=== PATIENT | female | born 1985 | race Two or more races ===

== ENCOUNTER 2017-01-19 04:56 | Emergency (ER) | payer SELFPAY ==
[~2017-01-19] VITALS: Ht 160 cm; Wt 59.0 kg
[2017-01-19] MEDS ORDERED: HYDROMORPHONE 2 MG/ML VIAL. IV PRN (05:45)
--- NOTE | 2017-01-19 05:59 | PHYS DOC ---
Past Medical History Past Medical History: Kidney Stone Past Surgical History: No Surgical History Alcohol Use: None Drug Use: None Adult General Chief Complaint Chief Complaint: ABDOMINAL PAIN HPI HPI 31-year-old female with a history of kidney stones presents emergency department with right flank pain. Her pain is sharp radiating to the groin intermittent and not associated with hematuria. She has nausea with one episode of nonbilious vomiting. She describes the pain is severe. Review of systems is negative for fevers chills. She denies chest pain or shortness of breath. All other review of systems is negative unless otherwise noted in history of present illness. Review of Systems Review of Systems SEE ABOVE. Current Medications Current Medications Current Medications Medications (Trade) Dose Ordered Sig/Camryn Start Time Stop Time Status Last Admin Dose Admin Hydromorphone HCl (Dilaudid) 0.5 mg PRN Q1HR PRN 01/19/17 05:45 Ondansetron HCl 4 mg 4 mg 1X ONCE 01/19/17 06:00 01/19/17 06:01 Sodium Chloride (Iv Sodium Chloride 0.9% 1000ml Bag) 1,000 ml @ 1,000 mls/hr 1X ONCE 01/19/17 06:00 01/19/17 06:59 Allergies Allergies Allergies Coded Allergies Type Severity Reaction Last Updated Verified No Known Drug Allergies 08/27/14 No Physical Exam Physical Exam Constitutional: Well developed, well nourished, no acute distress, non-toxic appearance. [] HENT: Normocephalic, atraumatic, bilateral external ears normal, oropharynx moist, no oral exudates, nose normal. Eyes: PERRLA, EOMI, conjunctiva normal, no discharge. [] Neck: Normal range of motion, no tenderness, supple, no stridor. Cardiovascular:Heart rate regular rhythm, no murmur [] Lungs & Thorax: Bilateral breath sounds clear to auscultation Abdomen: Bowel sounds normal, soft, no tenderness, no masses, no pulsatile masses. [] Skin: Warm, dry, no erythema, no rash. [] Back: No tenderness, mild right CVA tenderness. Extremities: No tenderness, no cyanosis, no clubbing, ROM intact, no edema. Neurologic: Alert and oriented X 3, normal motor function, normal sensory function, no focal deficits noted. [] Psychologic: Affect normal, judgement normal, mood normal. [] Current Patient Data Vital Signs Vital Signs Date Time Temp Pulse Resp B/P Pulse Ox O2 Delivery O2 Flow Rate FiO2 01/19/17 05:08 98.2 112 22 128/80 100 Room Air 98.2 EKG EKG [] Radiology/Procedures Radiology/Procedures [] Course & Med Decision Making Course & Med Decision Making Pertinent Labs and Imaging studies reviewed. (See chart for details) [] 31-year-old female presenting the emergency department with right flank pain. On examination the patient was mildly tachycardic. Afebrile. Exam shows right CVA tenderness. Urinalysis and test ordered. Patient was then signed out to Dr. Chapa at 6 AM with plans to follow up on urinalysis test and the patient's clinical condition. Dragon Disclaimer Dragon Disclaimer This electronic medical record was generated, in whole or in part, using a voice recognition dictation system. NICOLE CARTER MD Jan 19, 2017 05:58
[2017-01-19] MEDS ORDERED: IV NORMAL SALINE 1000ML BAG 1,000 ML IV ONE (06:00)
[2017-01-19] MEDS ORDERED: ONDANSETRON PF 4 MG/2 ML VIAL. IV ONE (06:00)
[2017-01-19 06:04] LABS: BILIRUBIN,URINE NEGATIVE (NEG); GLUCOSE,URINE NEGATIVE (NEG); NITRITE,URINE POSITIVE (NEG); PH,URINE 6.5; PROTEIN,URINE NEGATIVE (NEG-TRACE)
--- NOTE | 2017-01-19 06:48 | RAD ---
INDICATION: Abdomen pain. COMPARISON: August 27, 2014 TECHNIQUE: Ultrasound images obtained of the right kidney and bladder. FINDINGS: No gross hydronephrosis of the right kidney. Bladder largely decompressed IMPRESSION: No right-sided hydronephrosis Electronically signed by: Ortiz Field (Jan 19, 2017 06:46:18)
[2017-01-19 06:50] LABS: BACTERIA,URINE MANY /HPF (0-FEW); RBC,URINE >40 /HPF (0-2); SQUAMOUS EPITHELIAL CELL,UR MANY /LPF
--- NOTE | 2017-01-19 06:53 | ACF ---
Admit Criteria Forms Admit Criteria Forms Admit Criteria Forms ABDOMINAL PAIN Clinical Indications for Admission to Inpatient Care (Place 'X' for any and all applicable criteria): Admission is indicated for ANY ONE of the following(1)(2)(3)(4)(5): [X]I. Inpatient admission required rather than observation care (Also use Abdominal Pain: Observation Care, as appropriate) because of ANY ONE of the following: [X]a) Severe pain requiring acute inpatient management [ ]b) Identification of etiology/finding that requires inpatient care (eg, aortic dissection, free air) [ ]c) Absent bowel sounds with complete ileus(6) [ ]d) Suspected toxic megacolon [ ]e) Severe electrolyte abnormalities requiring inpatient care [ ]f) High fever or infection requiring inpatient admission as indicated by ANY ONE of following(7)(8): [ ] i) Appropriate outpatient or observational care antimicrobial treatment unavailable, not effective, or not feasible [ ] ii) Documented bacteremia [ ] iii) Temperature > 104.9 degrees F (oral) [ ] iv) T >103.1 F (oral) or < 96.8 F(rectal) that does not respond to all emergency treatment measures [ ]g) Signs of intestinal obstruction [B] [ ]h) Hemodynamic instability [ ]i) IV fluid to replace significant ongoing losses (greater than 3 L/m2 per day) (12)(13) [ ]j) Percutaneous or open drainage (eg, abscess, biliary tract ) procedures [ ]k) Parenteral nutrition regimen that must be implemented on inpatient basis [ ]l) Other condition,treatment or monitoring requiring inpatient admission. [ ]II. Peritoneal signs present [ ]III. Surgery needed that cannot be performed on an ambulatory basis. [ ]IV. Evaluation requires patient to not eat or drink for extended period ( eg, more than 24 hours). [ ]V. Contraindications and/or Inappropriate clinical situations for Observational Care in patients with abdominal pain, when ANY ONE of the following is required: [ ]a) Thorough evaluation is required to prevent catastrophic events due to delays in diagnosing (e.g.Mesenteric ischemia) 1,3 [ ]b) Patient with severe pathology or with chronic symptoms unlikely to improve in the ED stay (3) [ ]. General contraindications and/or Inappropriate clinical situations for Observational Care in patients with abdominal pain, when ANY ONE of the following is required: [ ]a) Prediction of prolongation of LOS based on ANY ONE of the following may be considered as a contraindication for observational care 2, 3, 4, 5, 6, 7, 8, 9, 10, 11 [ ]i) Age > 65 yrs. [ ]ii) Patient arriving by ambulance [ ]iii) Patient with high acuity [ ]iv) Patient requiring vital sign monitoring [ ]v) Patient on IV medication [ ]b) Systolic blood pressures 180mmHg 3,12 [ ]c) Patient with altered mental status including delirium and other alteration of consciousness, (3) [ ]d) Patient whose discharge disposition will be to a penitentiary home or rehabilitation home should not be managed in Emergency Department Observation Unit. CMS rule requires 3 days hospital stay before such placement.3,13 [ ]e) Patient with failure to thrive due to broad array of etiologies 3,16,17 [ ]f) Inability to ambulate 3,14 Extended stay beyond goal length of stay may be needed for(2)(3): [ ]a) Persistent abdominal pain with suspected intra-abdominal process [ ]b) Diagnosed condition requiring continued stay (e.g., pancreatitis, complicated diverticulitis) [ ]c) Surgery (e.g., colectomy) The original [employer] content created by [employer] has been revised. The portions of the content which have been revised are identified through the use of italic text or in bold, and [facility] has neither reviewed nor approved the modified material.All other unmodified content is copyright [employer]. Please see references footnoted in the original [facility] edition 2016 CARMEL BHATT Jan 19, 2017 06:53
[2017-01-19] MEDS ORDERED: CIPR250T PO (07:05)
[2017-01-19 07:10] VITALS: BP 110/57
== END 2017-01-19 07:19 | disposition home or self-care (01) ==
LOC: ER 04:56
DX: N30.01 Acute cystitis with hematuria (principal)
CPT/HCPCS: 76775; 81001; 81025; 87086; 96361; 96374; 96375; 99285; J1170; J2405; J7030

== ENCOUNTER 2018-07-12 05:51 | Inpatient (IN) | payer SELFPAY ==
[~2018-07-12] VITALS: Ht 152.4 cm; Wt 60.3 kg
[~2018-07-12 05:51] MED LIST: CIPR250T PO
[2018-07-12] MEDS ORDERED: IV NORMAL SALINE 1000ML BAG 1,000 ML IV SCH (06:15)
[2018-07-12] MEDS ORDERED: MORPHINE SULFATE 4 MG/ML DISP.SYRIN. IV ONE ×2 (06:15→07:00)
[2018-07-12] MEDS ORDERED: ONDANSETRON PF 4 MG/2 ML VIAL. IV ONE ×2 (06:15→07:45)
--- NOTE | 2018-07-12 06:16 | PHYS DOC ---
Past Medical History Past Medical History: Kidney Stone, UTI Past Surgical History: Cholecystectomy Alcohol Use: None Drug Use: None Adult General Chief Complaint Chief Complaint: ABDOMINAL PAIN HPI HPI Patient is a 32-year-old female, 4, para 3, approximately 20 weeks gestation, who presents to the emergency department for evaluation. She had a relatively sudden onset of right flank pain, with radiation down towards the right groin. The patient does have a history of renal stones and states that the pain feels similar. The pain began this morning, at about 2 AM, rather suddenly. The patient has had a few episodes of vomiting. She has not had any dysuria or gross hematuria. She has not had any vaginal bleeding or discharge and reports positive movement. She has not had any dizziness or lightheadedness, fevers, or chills. There are no alleviating or exacerbating factors to her symptoms. Review of Systems Review of Systems Constitutional: Denies fever or chills [] Eyes: Denies change in visual acuity, redness, or eye pain [] HENT: Denies nasal congestion or sore throat [] Respiratory: Denies cough or shortness of breath [] Cardiovascular: The patient denies any shortness of breath, chest pain, palpitations, or orthopnea [] GI: Denies bloody stools or diarrhea [] : Denies dysuria or hematuria [] Musculoskeletal: Denies back pain or joint pain, other than right flank pain [] Integument: Denies rash or skin lesions [] Neurologic: Denies headache, focal weakness or sensory changes [] Endocrine: Denies polyuria or polydipsia [] All other systems were reviewed and found to be within normal limits, except as documented in this note. Current Medications Current Medications Current Medications Medications (Trade) Dose Ordered Sig/[facility] Start Time Stop Time Status Last Admin Dose Admin Fentanyl Citrate (Fentanyl 2ml Vial) 50 mcg 1X ONCE 07/12/18 07:30 07/12/18 07:36 DC 07/12/18 07:47 50 MCG Ketorolac Tromethamine (Toradol) 30 mg 1X ONCE 07/12/18 08:15 07/12/18 08:16 DC 07/12/18 08:26 30 MG Morphine Sulfate (Morphine Sulfate) 4 mg 1X ONCE 07/12/18 07:00 07/12/18 07:01 DC 07/12/18 07:03 4 MG Ondansetron HCl (Zofran) 4 mg 1X ONCE 07/12/18 07:45 07/12/18 07:47 DC Sodium Chloride 1,000 ml @ 1,000 mls/hr Q1H 07/12/18 06:15 07/12/18 07:14 DC 07/12/18 06:20 1,000 MLS/HR Allergies Allergies Allergies Coded Allergies Type Severity Reaction Last Updated Verified No Known Drug Allergies 08/27/14 No Physical Exam Physical Exam PHYSICAL EXAM: CONSTITUTIONAL: Well developed, well nourished HEAD: normocephalic, atraumatic EENT: PERRL, EOMI. Conjunctivae normal color, sclerae non-icteric; moist mucous membranes. NECK: Supple, non-tender; no meningismus. LUNGS: Lungs CTA, breathing even and unlabored. Normal air movement. HEART: Regular rate and rhythm, no murmur CHEST: No deformity; non-tender ABDOMEN: The abdomen is soft, and relatively nontender. The gravid uterus is palpable and nontender. There is mild tenderness to palpation in the right lower abdomen. no masses or bruits. EXTREM: Normal ROM; no deformity, no calf tenderness. Normal pulses palpable in all extremities. There is no pedal edema. SKIN: No rash; no diaphoresis NEURO: Alert; normal speech and cognition; CN's grossly intact; strength grossly intact without focal deficit. BACK: There is significant right sided CVA TTP. There is no left-sided CVA tenderness to palpation of midline vertebral tenderness to palpation to the thoracic or lumbar spine. Current Patient Data Vital Signs Vital Signs Date Time Temp Pulse Resp B/P (MAP) Pulse Ox O2 Delivery O2 Flow Rate FiO2 07/12/18 07:03 Room Air 07/12/18 06:22 99 07/12/18 05:54 98.2 112 22 125/88 (100) 98.2 Lab Values Laboratory Tests Test 07/12/18 06:02 07/12/18 07:50 White Blood Count 6.8 x10^3/uL (4.0-11.0) Red Blood Count 3.61 x10^6/uL (3.50-5.40) Hemoglobin 11.2 g/dL (12.0-15.5) L Hematocrit 31.3 % (36.0-47.0) L Mean Corpuscular Volume 87 fL (79-100) Mean Corpuscular Hemoglobin 31 pg (25-35) Mean Corpuscular Hemoglobin Concent 36 g/dL (31-37) Red Cell Distribution Width 15.8 % (11.5-14.5) H Platelet Count 172 x10^3/uL (140-400) Neutrophils (%) (Auto) 70 % (31-73) Lymphocytes (%) (Auto) 19 % (24-48) L Monocytes (%) (Auto) 7 % (0-9) Eosinophils (%) (Auto) 3 % (0-3) Basophils (%) (Auto) 1 % (0-3) Neutrophils # (Auto) 4.8 x10^3uL (1.8-7.7) Lymphocytes # (Auto) 1.3 x10^3/uL (1.0-4.8) Monocytes # (Auto) 0.5 x10^3/uL (0.0-1.1) Eosinophils # (Auto) 0.2 x10^3/uL (0.0-0.7) Basophils # (Auto) 0.1 x10^3/uL (0.0-0.2) Sodium Level 135 mmol/L (136-145) L Potassium Level 3.2 mmol/L (3.5-5.1) L Chloride Level 104 mmol/L (98-107) Carbon Dioxide Level 22 mmol/L (21-32) Anion Gap 9 (6-14) Blood Urea Nitrogen 5 mg/dL (7-20) L Creatinine 0.6 mg/dL (0.6-1.0) Estimated GFR (Cockcroft-Gault) 115.9 BUN/Creatinine Ratio 8 (6-20) Glucose Level 124 mg/dL (70-99) H Calcium Level 8.6 mg/dL (8.5-10.1) Total Bilirubin 0.3 mg/dL (0.2-1.0) Aspartate Amino Transferase (AST) 19 U/L (15-37) Alanine Aminotransferase (ALT) 26 U/L (14-59) Alkaline Phosphatase 67 U/L (46-116) Total Protein 6.6 g/dL (6.4-8.2) Albumin 3.0 g/dL (3.4-5.0) L Albumin/Globulin Ratio 0.8 (1.0-1.7) L Lipase 119 U/L (73-393) Urine Collection Type Void Urine Color Yellow Urine Clarity Clear Urine pH 7.0 Urine Specific [place] 1.010 Urine Protein Negative mg/dL (NEG-TRACE) Urine Glucose (UA) Negative mg/dL (NEG) Urine Ketones (Stick) Negative mg/dL (NEG) Urine Blood Negative (NEG) Urine Nitrite Positive (NEG) Urine Bilirubin Negative (NEG) Urine Urobilinogen Dipstick 0.2 mg/dL (0.2 mg/dL) Urine Leukocyte Esterase Negative (NEG) Urine RBC 6-10 /HPF (0-2) Urine WBC 1-4 /HPF (0-4) Urine Squamous Epithelial Cells Mod /LPF Urine Bacteria Many /HPF (0-FEW) Urine Mucus Slight /LPF Laboratory Tests 07/12/18 06:02 Laboratory Tests 07/12/18 06:02 EKG EKG [] Radiology/Procedures Radiology/Procedures [PROCEDURE: RENAL COMPLETE RIGHT Right renal ultrasound 07/12/2018 CLINICAL INDICATION: Right flank pain. COMPARISON: Ultrasound 01/19/2017. FINDINGS: Right kidney measures 11.6 cm in length with pelvocaliectasis. Transverse diameter of the right renal pelvis 1.2 cm. Urinary bladder is only minimally distended. IMPRESSION: Right pelvocaliectasis of unclear etiology.] Course & Med Decision Making Course & Med Decision Making Pertinent Labs and Imaging studies reviewed. (See chart for details) [8:30 AM: The patient's condition remained stable, although she has had little improvement in her pain. I spoke with Dr. Sandesr, MANAGER MAINTENANCE, who agreed that the portal administration was safe and appropriate, which will be given. I will admit the patient for further evaluation and treatment, as she is having difficulty with pain control. Differential diagnosis includes renal stone, as well as extrinsic compression of the ureter. Radiology will obtain additional images to evaluate for the presence of ureteral jets on the right side. I also spoke with Dr. Wheat, for urology, who will see the patient in consultation.] Dragon Disclaimer Dragon Disclaimer This electronic medical record was generated, in whole or in part, using a voice recognition dictation system. Departure Departure Impression: Primary Impression: Flank pain Additional Impression: Disposition: ADMITTED INPATIENT Admitting Physician: Other (Tommy) Condition: STABLE Referrals: NO PCP (PCP) Problem Qualifiers PIA SOUZA MD Jul 12, 2018 06:16
[2018-07-12 06:21] LABS: BASO # 0.1 x10^3/uL (0.0-0.2); BASO % 1 % (0-3); EOS # 0.2 x10^3/uL (0.0-0.7); EOS % 3 % (0-3); HEMATOCRIT 31.3 % (36.0-47.0); HEMOGLOBIN 11.2 g/dL (12.0-15.5); LYMPH # 1.3 x10^3/uL (1.0-4.8); LYMPH % 19 % (24-48); MEAN CORPUSCULAR HEMOGLOBIN 31 pg (25-35); MEAN CORPUSCULAR HGB CONC 36 g/dL (31-37); MEAN CORPUSCULAR VOLUME 87 fL (79-100); MONO # 0.5 x10^3/uL (0.0-1.1); MONO % 7 % (0-9); NEUT # 4.8 x10^3uL (1.8-7.7); NEUT % 70 % (31-73); PLATELET COUNT 172 x10^3/uL (140-400); RED BLOOD COUNT 3.61 x10^6/uL (3.50-5.40); RED CELL DISTRIBUTION WIDTH 15.8 % (11.5-14.5); WHITE BLOOD COUNT 6.8 x10^3/uL (4.0-11.0)
[2018-07-12 06:29] LABS: CALCIUM 8.6 mg/dL (8.5-10.1); CREATININE 0.6 mg/dL (0.6-1.0); GFR 115.9; POTASSIUM 3.2 mmol/L (3.5-5.1)
[2018-07-12 06:34] LABS: ALBUMIN/GLOBULIN RATIO 0.8 (1.0-1.7); TOTAL BILIRUBIN 0.3 mg/dL (0.2-1.0); TOTAL PROTEIN 6.6 g/dL (6.4-8.2)
--- NOTE | 2018-07-12 06:50 | RAD ---
Right renal ultrasound 07/12/2018 CLINICAL INDICATION: Right flank pain. COMPARISON: Ultrasound 01/19/2017. FINDINGS: Right kidney measures 11.6 cm in length with pelvocaliectasis. Transverse diameter of the right renal pelvis 1.2 cm. Urinary bladder is only minimally distended. IMPRESSION: Right pelvocaliectasis of unclear etiology. Electronically signed by: Dexter Swift MD (07/12/2018 6:46 AM) [id number]
[2018-07-12] MEDS ORDERED: fentaNYL PF VIAL 100 MCG/2 ML VIAL IV ONE (07:30)
[2018-07-12 08:05] LABS: BILIRUBIN,URINE NEGATIVE (NEG); CLARITY,URINE CLEAR; COLOR,URINE YELLOW; NITRITE,URINE POSITIVE (NEG); PROTEIN,URINE NEGATIVE (NEG-TRACE); UROBILINOGEN,URINE 0.2 mg/dL (0.2 mg/dL)
[2018-07-12] MEDS ORDERED: KETOROLAC 30 MG/ML VIAL. IV ONE (08:15)
[2018-07-12 08:27] LABS: BACTERIA,URINE MANY /HPF (0-FEW); SQUAMOUS EPITHELIAL CELL,UR MOD /LPF
[2018-07-12] MEDS ORDERED: fentaNYL PF VIAL 100 MCG/2 ML VIAL IV PRN (08:45)
[2018-07-12] MEDS ORDERED: ONDANSETRON PF 4 MG/2 ML VIAL. IV PRN (08:45)
[2018-07-12] MEDS ORDERED: IV RINGERS,LACTATED 1000ML 1,000 ML IV SCH (09:15)
[2018-07-12 10:15] VITALS: BP 112/72
[2018-07-12] MEDS: IV RINGERS,LACTATED 1000ML 1,000 ML IV SCH ×3 (10:39→20:00)
--- NOTE | 2018-07-12 11:23 | PDOC2 ---
RUDI PHAN MACHINE CEMENTER AND FOLDER 07/12/18 1123: UROLOGY CONSULT Date of Consult Date of Consult DATE: 07/12/18 TIME: 11:09 Reason for Consult Reason for Consult: Possible kidney stone, history of stones Identification/Chief Complaint Chief Complaint Right flank pain, history of kidey stones Source Source: Caregiver, Chart review, Patient History of Present Illness Reason for Visit: Right flank pain, history of stones. Pt came in this morning for severe flank pain. She is not sure, but thinks it may be related to kidney stones, since she has had them before. She denies dysuria, fevers, or hematuria or seeing anything come out in her urine. The last time she had a kidney stone was three years ago and one and a half years ago she had a really bad kidney infection that she had to be hospitalized for. She denies bladder problems or pelvic surgeries. Currently her pain is 4/10, down from the 10/10 that brought her in. Past Medical History Grav: 4 Para: 3 Current Problem List Problems: (1) Flank pain Current Medications Current Medications Current Medications Ceftriaxone Sodium 50 ml @ 100 mls/hr 1X ONCE IV Last administered on at 08:52; Start 07/12/18 at 08:30; Stop 07/12/18 at 10:14; Status DC Fentanyl Citrate (Fentanyl 2ml Vial) 50 mcg 1X ONCE IV Last administered on at 07:47; Start 07/12/18 at 07:30; Stop 07/12/18 at 10:14; Status DC Fentanyl Citrate (Fentanyl 2ml Vial) 50 mcg PRN Q1HR PRN IV MODERATE TO SEVERE PAIN; Start 07/12/18 at 08:45; Stop 07/12/18 at 10:02; Status DC Fentanyl Citrate (Fentanyl 2ml Vial) 50 mcg PRN Q2HR PRN IV PAIN; Start at 10:00 Ketorolac Tromethamine (Toradol) 30 mg 1X ONCE IV Last administered on at 08:26; Start 07/12/18 at 08:15; Stop 07/12/18 at 10:14; Status DC Morphine Sulfate (Morphine Sulfate) 4 mg 1X ONCE IV Last administered on at 06:22; Start 07/12/18 at 06:15; Stop 07/12/18 at 10:14; Status DC Morphine Sulfate (Morphine Sulfate) 4 mg 1X ONCE IV Last administered on at 07:03; Start 07/12/18 at 07:00; Stop 07/12/18 at 10:14; Status DC Ondansetron HCl (Zofran) 4 mg 1X ONCE IV Last administered on 07/12/18at 06:20 ; Start 07/12/18 at 06:15; Stop 07/12/18 at 10:14; Status DC Ondansetron HCl (Zofran) 4 mg 1X ONCE IV ; Start 07/12/18 at 07:45; Stop at 10:14; Status DC Ondansetron HCl (Zofran) 4 mg PRN Q6HRS PRN IV NAUSEA/VOMITING; Start 07/12/18 at 10:00 Ondansetron HCl (Zofran) 4 mg PRN Q8HRS PRN IV NAUSEA/VOMITING; Start 07/12/18 at 08:45; Stop 07/12/18 at 10:02; Status DC Ringer's Solution 1,000 ml @ 100 mls/hr Q10H IV ; Start 07/12/18 at 09:15; Status Cancel Ringer's Solution 1,000 ml @ 200 mls/hr Q5H IV Last administered on 07/12/18at 10:39; Start 07/12/18 at 10:00 Sodium Chloride 1,000 ml @ 1,000 mls/hr Q1H IV Last administered on 07/12/18at 06:20; Start 07/12/18 at 06:15; Stop 07/12/18 at 07:14; Status DC Allergies Allergies: Coded Allergies: No Known Drug Allergies (Unverified , 08/27/14) ROS Review Of Systems: CONSTITUTIONAL: No fever or chills EYES: No recent changes SKIN: No rash or itching CARDIOVASCULAR: No chest pain, syncope, palpitations, or edema RESPIRATORY: No SOB or cough GASTROINTESTINAL: + right flank pain NEUROLOGICAL: No headaches or weakness ENDOCRINE: No cold or heat intolerance GENITOURINARY: No urgency or frequency of urination MUSCULOSKELETAL: No back pain or joint pain LYMPHATICS: No enlarged lymph nodes PSYCHIATRIC: No anxiety or depression Physical Exam Physical Exam: General: Pleasant, no acute distress, well groomed Eyes: conjunctiva anicteric, eyes full range of motion ENT: moist oral mucosa, normal dentition Neck: Trachea midline, no masses Respiratory: unlabored breathing, not using accessory muscles. Abdomen:+ right flank pain, + right CVA pain, non tender on the left flank/cva area or left abd area. Skin: no rashes or skin lesions on visualized skin Psych: normal mood, affect. Alert and oriented x 3. Vitals VITALS Vital Signs Date Time Temp Pulse Resp B/P (MAP) Pulse Ox O2 Delivery O2 Flow Rate FiO2 07/12/18 10:15 98.2 94 20 112/72 (85) 99 Room Air 98.2 Labs Labs Laboratory Tests Test 07/12/18 06:02 07/12/18 07:50 White Blood Count 6.8 x10^3/uL (4.0-11.0) Red Blood Count 3.61 x10^6/uL (3.50-5.40) Hemoglobin 11.2 g/dL (12.0-15.5) Hematocrit 31.3 % (36.0-47.0) Mean Corpuscular Volume 87 fL (79-100) Mean Corpuscular Hemoglobin 31 pg (25-35) Mean Corpuscular Hemoglobin Concent 36 g/dL (31-37) Red Cell Distribution Width 15.8 % (11.5-14.5) Platelet Count 172 x10^3/uL (140-400) Neutrophils (%) (Auto) 70 % (31-73) Lymphocytes (%) (Auto) 19 % (24-48) Monocytes (%) (Auto) 7 % (0-9) Eosinophils (%) (Auto) 3 % (0-3) Basophils (%) (Auto) 1 % (0-3) Neutrophils # (Auto) 4.8 x10^3uL (1.8-7.7) Lymphocytes # (Auto) 1.3 x10^3/uL (1.0-4.8) Monocytes # (Auto) 0.5 x10^3/uL (0.0-1.1) Eosinophils # (Auto) 0.2 x10^3/uL (0.0-0.7) Basophils # (Auto) 0.1 x10^3/uL (0.0-0.2) Sodium Level 135 mmol/L (136-145) Potassium Level 3.2 mmol/L (3.5-5.1) Chloride Level 104 mmol/L (98-107) Carbon Dioxide Level 22 mmol/L (21-32) Anion Gap 9 (6-14) Blood Urea Nitrogen 5 mg/dL (7-20) Creatinine 0.6 mg/dL (0.6-1.0) Estimated GFR (Cockcroft-Gault) 115.9 BUN/Creatinine Ratio 8 (6-20) Glucose Level 124 mg/dL (70-99) Calcium Level 8.6 mg/dL (8.5-10.1) Total Bilirubin 0.3 mg/dL (0.2-1.0) Aspartate Amino Transf (AST/SGOT) 19 U/L (15-37) Alanine Aminotransferase (ALT/SGPT) 26 U/L (14-59) Alkaline Phosphatase 67 U/L (46-116) Total Protein 6.6 g/dL (6.4-8.2) Albumin 3.0 g/dL (3.4-5.0) Albumin/Globulin Ratio 0.8 (1.0-1.7) Lipase 119 U/L (73-393) Urine Collection Type Void Urine Color Yellow Urine Clarity Clear Urine pH 7.0 Urine Specific [place] 1.010 Urine Protein Negative mg/dL (NEG-TRACE) Urine Glucose (UA) Negative mg/dL (NEG) Urine Ketones (Stick) Negative mg/dL (NEG) Urine Blood Negative (NEG) Urine Nitrite Positive (NEG) Urine Bilirubin Negative (NEG) Urine Urobilinogen Dipstick 0.2 mg/dL (0.2 mg/dL) Urine Leukocyte Esterase Negative (NEG) Urine RBC 6-10 /HPF (0-2) Urine WBC 1-4 /HPF (0-4) Urine Squamous Epithelial Cells Mod /LPF Urine Bacteria Many /HPF (0-FEW) Urine Mucus Slight /LPF Laboratory Tests Test 07/12/18 06:02 07/12/18 07:50 White Blood Count 6.8 x10^3/uL (4.0-11.0) Red Blood Count 3.61 x10^6/uL (3.50-5.40) Hemoglobin 11.2 g/dL (12.0-15.5) Hematocrit 31.3 % (36.0-47.0) Mean Corpuscular Volume 87 fL (79-100) Mean Corpuscular Hemoglobin 31 pg (25-35) Mean Corpuscular Hemoglobin Concent 36 g/dL (31-37) Red Cell Distribution Width 15.8 % (11.5-14.5) Platelet Count 172 x10^3/uL (140-400) Neutrophils (%) (Auto) 70 % (31-73) Lymphocytes (%) (Auto) 19 % (24-48) Monocytes (%) (Auto) 7 % (0-9) Eosinophils (%) (Auto) 3 % (0-3) Basophils (%) (Auto) 1 % (0-3) Neutrophils # (Auto) 4.8 x10^3uL (1.8-7.7) Lymphocytes # (Auto) 1.3 x10^3/uL (1.0-4.8) Monocytes # (Auto) 0.5 x10^3/uL (0.0-1.1) Eosinophils # (Auto) 0.2 x10^3/uL (0.0-0.7) Basophils # (Auto) 0.1 x10^3/uL (0.0-0.2) Sodium Level 135 mmol/L (136-145) Potassium Level 3.2 mmol/L (3.5-5.1) Chloride Level 104 mmol/L (98-107) Carbon Dioxide Level 22 mmol/L (21-32) Anion Gap 9 (6-14) Blood Urea Nitrogen 5 mg/dL (7-20) Creatinine 0.6 mg/dL (0.6-1.0) Estimated GFR (Cockcroft-Gault) 115.9 BUN/Creatinine Ratio 8 (6-20) Glucose Level 124 mg/dL (70-99) Calcium Level 8.6 mg/dL (8.5-10.1) Total Bilirubin 0.3 mg/dL (0.2-1.0) Aspartate Amino Transf (AST/SGOT) 19 U/L (15-37) Alanine Aminotransferase (ALT/SGPT) 26 U/L (14-59) Alkaline Phosphatase 67 U/L (46-116) Total Protein 6.6 g/dL (6.4-8.2) Albumin 3.0 g/dL (3.4-5.0) Albumin/Globulin Ratio 0.8 (1.0-1.7) Lipase 119 U/L (73-393) Urine Collection Type Void Urine Color Yellow Urine Clarity Clear Urine pH 7.0 Urine Specific [place] 1.010 Urine Protein Negative mg/dL (NEG-TRACE) Urine Glucose (UA) Negative mg/dL (NEG) Urine Ketones (Stick) Negative mg/dL (NEG) Urine Blood Negative (NEG) Urine Nitrite Positive (NEG) Urine Bilirubin Negative (NEG) Urine Urobilinogen Dipstick 0.2 mg/dL (0.2 mg/dL) Urine Leukocyte Esterase Negative (NEG) Urine RBC 6-10 /HPF (0-2) Urine WBC 1-4 /HPF (0-4) Urine Squamous Epithelial Cells Mod /LPF Urine Bacteria Many /HPF (0-FEW) Urine Mucus Slight /LPF Images Images FINDINGS: Right kidney measures 11.6 cm in length with pelvocaliectasis. Transverse diameter of the right renal pelvis 1.2 cm. Urinary bladder is only minimally distended. IMPRESSION: Right pelvocaliectasis of unclear etiology. Electronically signed by: Dexter Swift MD (07/12/2018 6:46 AM) [facility] Assessment/Plan Assessment/Plan Right sided flank pain or uncertain etiology, suspicious for stones. Due to , we cannot do a CT scan or KUB at this time to confirm. We will admit overnight for observation, pain control, continuous IVF. Nursing to strain urine. Right uteroscopy scheduled for tomorrow at [address] Powers of [facility]. Case discussed in detail with him, consents entered. Rocephin 1 gram IV on board NPO after midnight for procedure in the morning, regular diet today CHIVO POWERS MD 07/12/18 1601: UROLOGY CONSULT Assessment/Plan Assessment/Plan Unclear etiology of right flank pain and mild hydronephrosis in this 32 yo female who is 20 wks . H/O renal stone that she has passed spontaneously. Afebrile w/o leukocytosis. Cr WNL. UA +nitrites, bacteria and squamous cell. Few WBC or LE. Will plan for overnight observation and if continues to have sx we discussed cystoscopy with diagnositc right ureteroscopy , possible laser lithotripsy and ureteral stent placement. Risks and SEs reviewed. Consenting to the treatment plan and surgical procedure if necessary. RUDI PHAN MACHINE CEMENTER AND FOLDER Jul 12, 2018 11:23 CHIVO POWERS MD Jul 12, 2018 16:01
[2018-07-12] MEDS: fentaNYL PF VIAL 100 MCG/2 ML VIAL IV PRN ×3 (11:36→23:23)
[2018-07-12 14:47] VITALS: BP 121/78
--- NOTE | 2018-07-12 17:42 | PDOC1 ---
OB - History Hx of Present Care: Good Care Ultrasounds: Normal mid trimester US Obstetrical Complications: None Medical Complications: None, Genitourinary Past Family/Social History * Past Medical, Surgical, Family and Obstetric Histories reviewed from chart. OB - Chief Complaint & HPI Date of Admission: Date of Admission: Jul 12, 2018 at 08:30 Chief Complaint/History : 4 Para: 3 EDC: Dec 05, 2018 Reason for admission: other (flank pain) Admission Nurse Assessment Rev: Yes OB - Admission Exam Physical Exam Vitals: VS - Last 72 Hours, by Label Date Time Temp Pulse Resp B/P (MAP) Pulse Ox O2 Delivery O2 Flow Rate FiO2 07/12/18 14:47 98.1 88 18 121/78 (92) 99 Room Air 98.1 07/12/18 10:15 98.2 94 20 112/72 (85) 99 Room Air 98.2 07/12/18 09:09 86 18 106/60 (75) 100 Room Air 07/12/18 08:52 85 18 110/60 (77) 100 Room Air 07/12/18 07:47 93 18 119/74 (89) 100 07/12/18 07:03 Room Air 07/12/18 07:01 106 18 100/56 (71) 100 Room Air 07/12/18 06:22 99 Room Air 07/12/18 05:54 98.2 112 22 125/88 (100) 99 Room Air 98.2 HEENT: Normal, Nasal Mucosa Normal, Oropharynx Normal, Moist Membranes, Fontanelles Normal Heart: Regular Rate Lungs: Clear, Equal Abdomen: Gravid Extremities: Normal Pulses, No tenderness or swelling Reflexes: Normal Cervical Dilatation: None Effacement: 0% Heart Rate: Normal Assessment/Plan Assessment/Plan 20 week IUP C\Flank pain Admit Hydrate Urology consult KYLE JARQUIN MD Jul 12, 2018 17:42
[2018-07-12 20:45] VITALS: BP 102/58
[2018-07-12] MEDS: ONDANSETRON PF 4 MG/2 ML VIAL. IV PRN (23:31)
[2018-07-13] MEDS: IV RINGERS,LACTATED 1000ML 1,000 ML IV SCH ×2 (00:15→05:15)
[2018-07-13 00:30] VITALS: BP 95/62
[2018-07-13 05:53] VITALS: BP 107/58
[2018-07-13] MEDS: fentaNYL PF VIAL 100 MCG/2 ML VIAL IV PRN (06:04)
[2018-07-13] MEDS: ONDANSETRON PF 4 MG/2 ML VIAL. IV PRN (06:12)
[2018-07-13] MEDS ORDERED: IV RINGERS,LACTATED 1000ML 1,000 ML IV SCH (07:00)
[2018-07-13] MEDS ORDERED: LIDOCAINE 1% PF 2 ML VIAL. ID PRN (07:00)
[2018-07-13] MEDS ORDERED: PROCHLORPERAZINE 10 MG/2 ML VIAL. IV PRN (07:00)
[2018-07-13] MEDS ORDERED: MORPHINE SULFATE 2 MG/ML DISP.SYRIN. IV PRN (07:00)
[2018-07-13] MEDS ORDERED: fentaNYL PF VIAL 100 MCG/2 ML VIAL IV PRN ×2 (07:00)
--- NOTE | 2018-07-13 10:13 | PDOC ---
RUDI PHAN DIRECTOR CLINICAL PHARMACOLOGY 07/13/18 1013: SUBJECTIVE Subjective Patient is actively passing her kidney stones, the last one she passed this morning and is about 4 mm. Nursing has it in a jar. She still does have some pain and vomiting and is not sure if she still needs the surgery or not. 1240: Patient doing a lot better, OK with going home if it is OK with us. OBJECTIVE Objective Physical Exam: General appearance: Alert and Oriented Head: Normocephalic, without obvious abnormality Eyes: conjunctivae/corneas clear. PERRL, EOM's intact. Fundi benign Back: right sided pain Lungs: regular respirations, non labored breathing Abdomen: soft, tender right side, non tender on the left. Gravid abdomen Vital Signs Vital Signs Date Time Temp Pulse Resp B/P (MAP) Pulse Ox O2 Delivery O2 Flow Rate FiO2 07/13/18 06:04 99 Room Air 07/13/18 05:53 98.2 103 14 107/58 (74) 99 Room Air 98.2 07/13/18 00:30 97.7 91 95/62 (73) 94 Room Air 97.7 07/12/18 23:23 100 Room Air 07/12/18 21:00 Room Air 07/12/18 20:45 99.0 92 18 102/58 (73) 100 Room Air 99.0 07/12/18 19:45 Room Air 07/12/18 19:15 Room Air 07/12/18 14:47 98.1 88 18 121/78 (92) 99 Room Air 98.1 07/12/18 10:15 98.2 94 20 112/72 (85) 99 Room Air 98.2 I & O Intake and Output 07/13/18 07:00 Intake Total 2813 ml Output Total 3450 ml Balance -637 ml Intake Oral 300 ml IV Total 1050 ml Other 1463 ml Output Urine Total 3250 ml Emesis 200 ml PHYSICAL EXAM Physical Exam Physical Exam: General appearance: Alert and Oriented Head: Normocephalic, without obvious abnormality Eyes: conjunctivae/corneas clear. PERRL, EOM's intact. Fundi benign Back: right sided pain Lungs: regular respirations, non labored breathing Abdomen: soft, tender right side, non tender on the left. Gravid abdomen ASSESSMENT/PLAN Assessment/Plan Trial of oral medications this am. Discharge later today if doing well on this. Will have patient follow up in clinic next week with Dr. Powers of [facility]. Will arrange for follow up with Milliner Helper. Strain urine Keep IVF going for now. Regular diet Send stone for analysis. 1240: UPDATE Patient feeling a lot better, doing well on oral medications, open to going home An appointment has been secured for her to follow up with Dr. Powers at [facility] location on 07/19/18 at 10:20 am. Pt given appointment card, all questions answered. Prescriptions written for Lortab and Zofran, total of 40 each medication, no refills. Nursing to give strainer at discharge, patient to strain urine at home, continue to hydrate. Report fevers greater than 100 to Urology. COMMENT Imaging US 07/12: FINDINGS: Right kidney measures 11.6 cm in length with pelvocaliectasis. Transverse diameter of the right renal pelvis 1.2 cm. Urinary bladder is only minimally distended. IMPRESSION: Right pelvocaliectasis of unclear etiology. CHIVO POWERS MD 07/13/18 1600: ASSESSMENT/PLAN Assessment/Plan Passed her stone overnight. Sx are much improved. UA is potentially contaminated however, would treat E coli given . Call for fevers, chill, worsening sx or other concerns. Consenting to the treatment plan. RUDI PHAN APRN Jul 13, 2018 10:13 CHIVO POWERS MD Jul 13, 2018 16:00
[2018-07-13] MEDS ORDERED: ONDANSETRON ODT 4 MG TAB.RAPDIS. PO PRN (10:15)
[2018-07-13] MEDS ORDERED: HYDROcodone/APAP 5/325MG 1 TAB TABLET PO PRN (10:15)
[2018-07-13 12:23] VITALS: BP 110/68
== END 2018-07-13 13:19 | disposition home or self-care (01) | DRG 781 ==
LOC: ER 05:51 → 3 NORTH 08:30
PROVIDERS: ADMIT Specialist; ATTEND Specialist
DX: O26.832 Pregnancy related renal disease, second trimester (principal); N13.30 Unspecified hydronephrosis; N20.0 Calculus of kidney; Z3A.20 20 weeks gestation of pregnancy; Z87.440 Personal history of urinary (tract) infections; Z90.49 Acquired absence of other specified parts of digestive tract
CPT/HCPCS: 36415; 76775; 80053; 81001; 83690; 85025; 87086; 96361; 96365; 96375; J0690; J1885; J2270; J2405; J3010; J7030; J7120; 99285-25